=== PATIENT | female | born 1980 ===

== ENCOUNTER 2021-07-10 15:49 | Emergency (ER) | payer SELFPAY ==
[~2021-07-10] VITALS: Ht 162.6 cm; Wt 73.1 kg
[2021-07-10] MEDS ORDERED: SODIUM CHLORIDE FLUSH 10ML SYR IVF ONE (16:30)
[2021-07-10 16:56] LABS: BASOPHILS % (AUTO) 1 % (0-1); EOSINOPHILS % (AUTO) 5 % (1-7); LYMPHOCYTES % (AUTO) 39 % (22-44); MEAN CORPUSCULAR HEMOGLOBIN 31.5 pg (27.0-34.8); MEAN CORPUSCULAR HGB CONC 34.4 g/dL (32.4-35.8); MEAN PLATELET VOLUME 9.5 fL (7.4-10.4); MONOCYTES % (AUTO) 8 % (2-9); NEUTROPHILS % (AUTO) 47 % (42-75); PLATELET COUNT 279 x10^3/uL (130-400); RED BLOOD COUNT 4.49 x10^6/uL (3.82-5.3); RED CELL DISTRIBUTION WIDTH 13.9 % (9.6-15.2)
[2021-07-10 17:07] LABS: ALANINE AMINOTRANSFERASE 36 U/L (12-78); ALBUMIN 3.8 g/dL (3.4-5.0); ANION GAP 3 mmol/L (5-15); CALCIUM 8.7 mg/dL (8.5-10.1); CHLORIDE 106 mmol/L (98-107)
[2021-07-10 17:12] LABS: ALKALINE PHOSPHATASE 66 U/L (45-117); BILIRUBIN,TOTAL 0.6 mg/dL (0.2-1.0); CREATININE 0.78 mg/dL (0.55-1.02); TOTAL PROTEIN 7.5 g/dL (6.4-8.2)
--- NOTE | 2021-07-10 19:28 | NUR ---
STARTED 20G IN RIGHT AC FOR CT EXAM. SENT PATIENT OUT TO LOBBY WITH IV INTACT.
--- NOTE | 2021-07-10 19:31 | NUR ---
BACK FROM CT SCAN RE-VITAL'D CC UA SENT
[2021-07-10 19:32] VITALS: BP 117/63
[2021-07-10] MEDS ORDERED: OMNIPAQUE 350 MG/ML, 100ML BOTTLE ONE (19:33)
[2021-07-10 19:49] LABS: MICROSCOPIC INDICATED
== END 2021-07-10 21:15 | disposition home or self-care (01) ==
LOC: ED 16:05
DX: N83.202 Unspecified ovarian cyst, left side (principal); E78.5 Hyperlipidemia, unspecified; Z86.39 Personal history of other endocrine, nutritional and metabolic disease
CPT/HCPCS: 36415; 74177; 76830; 80053; 81001; 83690; 84703; 85025; 99285; Q9967